=== PATIENT | female | born 1965 | race Caucasian/White ===

== ENCOUNTER 2017-08-11 05:24 | Inpatient (IN) | payer BC, OTHER ==
[2017-08-05 13:15] LABS: HEMATOCRIT 40.4 % (37.0-47.0); HEMOGLOBIN 13.7 gm/dL (12.0-15.0); MCH 27.7 pg (26.0-34.0); MCHC 33.9 g/dL (28.0-37.0); MCV 81.6 fL (80.0-100.0); RBC 4.95 mil/uL (4.20-5.00); RDW 14.2 % (10.5-14.5); WBC 9.1 thou/uL (4.0-11.0)
[2017-08-05 13:23] LABS: URINE BILIRUBIN NEGATIVE (Negative); URINE BLOOD NEGATIVE (Negative); URINE COLOR YELLOW; URINE GLUCOSE-RANDOM* NEGATIVE (Negative); URINE KETONES NEGATIVE (Negative); URINE LEUKOCYTES-REFLEX NEGATIVE (Negative); URINE PROTEIN (DIPSTICK) NEGATIVE (Negative); URINE SPECIFIC GRAVITY >= 1.030 (1.003-1.035); URINE UROBILINOGEN 0.2 E.U./dl (0.2-1.0)
[2017-08-05 13:30] LABS: PROTIME 10.7 Seconds (9.3-11.4)
[2017-08-05 13:49] LABS: ALBUMIN 3.7 g/dL (3.4-5.0); CALCIUM 9.1 mg/dL (8.5-10.1); CREATININE 0.9 mg/dL (0.6-1.0)
[~2017-08-11] VITALS: Ht 162.6 cm; Wt 104.8 kg
--- NOTE | ~2017-08-11 | O ---
[facility] [place] [address] OPERATIVE REPORT Name: CROW BARROSO Room #: 404-P ADM IN M.R.#: [id number] Admission: 08/11/17 Attend Phys: Nando Del Castillo MD Discharge: Date of : 61 Report #: [id number] THIS REPORT FOR: //name// CC: Yuriy Del Castillo DATE OF SERVICE: 08/11/2017 PREOPERATIVE DIAGNOSIS: Left knee degenerative joint disease, severe. POSTOPERATIVE DIAGNOSIS: Left knee degenerative joint disease, severe. PROCEDURE: Left total knee arthroplasty. SURGEON: Nando Del Castillo MD REIMBURSEMENT COORDINATOR: Leta Wise. INDICATIONS FOR REIMBURSEMENT COORDINATOR: During the course of operation, extensive manipulation, retraction and limb positioning was required. This was afforded to me by my insurance administrative assistant. ANESTHETIC: General. INDICATION: See hospital H and P. IMPLANTS UTILIZED: The [employer] legion. We used a size 7 femoral component cruciate retaining press fit. We used a size 5 tibial tray with a 9 mm insert and a 35 mm oval dome patella. DESCRIPTION OF PROCEDURE: After adequate general anesthesia had been obtained, the patient's left lower extremity was prepped and draped in the usual meticulous sterile fashion. Limb was exsanguinated with gravity and tourniquet inflated to 350 torr. Anterior midline incision was made, subQ divided sharply. Hemostasis obtained with electrocautery. Medial parapatellar incision was made. Infrapatellar fat pad excised. Medial release performed. Drill was used to drill the distal femur. This was enlarged, irrigated and suctioned, and the intramedullary guide placed the full length of the femur. Distal femoral cutting guide was pinned to appropriate height and the distal femoral cut was made. We measured the distal femur and determined a size 7 was appropriate size for this patient. We marked the distal femur, impacted the cutting guide into position, anterior and posterior chamfer cuts were made. Rongeur was used to remove additional osteophytes. At this time, the ACL was transected, tibia translated anteriorly and menisci were excised. Drill was used to drill central portion of the tibia. This hole was enlarged, irrigated, suctioned, and the [facility] [address] [place] [address] OPERATIVE REPORT Name: CROW BARROSO Room #: 404-P ADM IN M.R.#: [id number] Admission: 08/11/17 Attend Phys: Nando Del Castillo MD Discharge: Date of : 61 Report #: [id number] intramedullary guide placed the full length of the tibia. Proximal tibial cutting guide placed at appropriate height. Proximal tibia cut was made. The size 5 tray gave us the best coverage on the tibia. We put the trial components in position and a 9 spacer gave us the best flexion and extension gap. Patella tracked normally. Patella was then measured, cutting guide clamped into place, patellar cut was made, 35 template gave us the best coverage. Pedicles were drilled, trial component put in position, it tracked normally. At this time, the tibial keel cuts were made. The knee was irrigated with both pulse lavage and antibiotic irrigation. Bone plugs were placed in proximal tibia and distal femur. The cement was vacuum mixed and when it reached the appropriate consistency, the knee was thoroughly dried. The tibial tray was cemented into place. Excess cement was removed. The polyethylene was impacted in place and the femur impacted in place and the knee was taken out to 30 degrees of flexion with uniform compression placed across components. Patellar button was then cemented into place and again excess cement was removed. The knee was irrigated and irrigation was allowed to rest in the wound until the cement fully cured. When it had done so, the knee was irrigated, dried thoroughly, and inspected. Drains were placed superolaterally both deep and superficial. Retinacular layer closed with combination of interrupted [id number] #1 Vicryl as well as running #1 Tevdek. SubQ closed in multiple layers due to the patient's size with 2-0 Monocryl, skin closed with lelia. Sterile compressive dressing applied. Tourniquet then deflated. <ELECTRONICALLY SIGNED> By: Nando Del Castillo MD 08/11/17 [id number] Nando Del Castillo MD /nt
[~2017-08-11 05:24] MED LIST: IBUPROFEN 200200 M1 PO; MELATIN3 MG PO; PRILOSEC 20 MG20 MG PO; TOPROL XL25 MG PO; ZYRTEC10 M5 PO
[2017-08-11 08:45] VITALS: BP 135/86
[2017-08-11 15:15] VITALS: BP 122/79
[2017-08-11] MEDS ORDERED: LOPRESSOR50 PO (15:28)
[2017-08-11 15:45] VITALS: BP 124/39
[2017-08-11 16:15] VITALS: BP 131/91
[2017-08-11 16:45] VITALS: BP 104/63
[2017-08-11 20:00] VITALS: BP 128/69
[2017-08-12] VITALS: BP 134/70
[2017-08-12 04:00] VITALS: BP 109/81; BP 159/92
[2017-08-12 06:09] LABS: HEMATOCRIT 36.1 % (37.0-47.0); HEMOGLOBIN 12.3 gm/dL (12.0-15.0); MCH 27.6 pg (26.0-34.0); MCV 81.4 fL (80.0-100.0); RBC 4.44 mil/uL (4.20-5.00); RDW 14.6 % (10.5-14.5); WBC 11.8 thou/uL (4.0-11.0)
[2017-08-12 08:00] VITALS: BP 125/64
[2017-08-12 14:49] VITALS: BP 125/64
[2017-08-12 16:00] VITALS: BP 119/70
[2017-08-12 20:00] VITALS: BP 120/79
[2017-08-13 04:00] VITALS: BP 127/73
[2017-08-13 06:32] LABS: HEMATOCRIT 34.8 % (37.0-47.0); HEMOGLOBIN 11.8 gm/dL (12.0-15.0); MCH 27.9 pg (26.0-34.0); MCHC 33.9 g/dL (28.0-37.0); MCV 82.1 fL (80.0-100.0); RBC 4.23 mil/uL (4.20-5.00); RDW 14.5 % (10.5-14.5); WBC 10.5 thou/uL (4.0-11.0)
[2017-08-13] MEDS ORDERED: NORCO 7.5-3251 EACH PO (07:00)
[2017-08-13] MEDS ORDERED: XARELTO10 MG PO (07:00)
[2017-08-13 08:05] VITALS: BP 130/65
[2017-08-13 16:55] VITALS: BP 131/72
[2017-08-13 19:32] VITALS: BP 119/65
[2017-08-14 04:55] LABS: HEMATOCRIT 33.9 % (37.0-47.0); HEMOGLOBIN 11.4 gm/dL (12.0-15.0); MCH 27.7 pg (26.0-34.0); MCHC 33.7 g/dL (28.0-37.0); MCV 82.3 fL (80.0-100.0); RBC 4.12 mil/uL (4.20-5.00); RDW 14.7 % (10.5-14.5)
[2017-08-14 05:03] VITALS: BP 131/71
[2017-08-14 08:00] VITALS: BP 115/77
[2017-08-14 11:00] VITALS: BP 125/64
== END 2017-08-14 13:15 | disposition home health service (06) | DRG 470 ==
LOC: TBA 05:24 → PRE 05:29 → 4N 15:03 → ENTRNSPT 08-14 13:03 → EDTRNSPTSTS 08-14 13:07 → 4N 08-14 13:15
PROVIDERS: Orthopaedic Surgery
PROC: 0SRD0J9 Replacement of Left Knee Joint with Synthetic Substitute, Cemented, Open Approach (ICD-10-PCS; principal; 2017-08-11)
DX: M17.12 Unilateral primary osteoarthritis, left knee (principal); K21.9 Gastro-esophageal reflux disease without esophagitis; I10 Essential (primary) hypertension; Z85.3 Personal history of malignant neoplasm of breast; Z90.13 Acquired absence of bilateral breasts and nipples; Z98.891 History of uterine scar from previous surgery; Z87.891 Personal history of nicotine dependence
CPT/HCPCS: 10790; 50010; 50101; 50414; 50954; 51130; 51225; 51320; 51412; 51771; 52001; 53078; 53364; 56525; 56527; 62110; 62900; 64042; 64043; 70005